=== PATIENT | female | born 1995 | race Caucasian/White ===

== ENCOUNTER 2017-08-22 15:31 | Emergency (ER) | payer MEDICAID, OTHER ==
--- NOTE | 2017-08-22 15:56 | EDPHY ---
H & P Stated Complaint: uti dx 2 days ago--cant swallow antibiotics-feels worse, diarrhea Time Seen by Provider: 08/22/17 15:41 - Personal History LMP (Females 10-55): Over 28 Days Ago - Medical/Surgical History Hx Asthma: No Hx Chronic Respiratory Disease: No Hx Diabetes: No Hx Cardiac Disease: No Hx Renal Disease: No Hx Cirrhosis: No Hx Alcoholism: No Hx HIV/AIDS: No Hx Splenectomy or Spleen Trauma: No Other PMH: "attention problems", wisdom teeth. frequent uti - Social History Smoking Status: Never smoked Constitutional: Initial Vital Signs Temperature (C) 37.2 C 08/22/17 15:37 Heart Rate 120 H 08/22/17 15:37 Respiratory Rate 16 08/22/17 15:37 Blood Pressure 111/75 08/22/17 15:37 O2 Sat (%) 97 08/22/17 15:37 O2 Delivery Mode Room Air Allergies/Adverse Reactions: Penicillins Allergy (Verified 08/22/17 15:34) Home Medications: Medication Instructions Recorded Cefdinir 250 mg PO BID #100 susp.recon 08/22/17 Cefuroxime 08/22/17 Medical Decision Making ED Course/Re-evaluation: CHIEF COMPLAINT: Worsening UTI, diarrhea HISTORY OF PRESENT ILLNESS: The patient is a 22 y/o female with a history of frequent UTI's and developmental delay complaining of worsening urinary symptoms (including frequent and painful urination) and diarrhea. She was seen in an emergency department 2 days ago and diagnosed with a UTI. She was prescribed Cefuroxime, but has only had a several doses as she is unable to swallow the pills. Today she began to have diarrhea and bilateral flank pain. Prior UTI's have been successfully treated with liquid Cefdinir. Denies chest pain, sore throat, headache, bowel complaints, paresthesias or numbness. REVIEW OF SYSTEMS: A 10 point review of systems was performed and is negative with the exception of the elements mentioned in the history of present illness. PHYSICAL EXAM: HR, BP, O2 Sat, RR. Temp noted General Appearance: Alert, well hydrated, and non-toxic appearing. Head: Atraumatic without scalp tenderness or obvious injury Eyes: Pupils equal, round, reactive to light and accommodation, EOMI, no trauma , no injection. Ears: Clear bilaterally, no perforation, normal landmarks Nose: Atraumatic, no rhinorrhea, clear. Throat: Mucus membranes dry. Neck: Supple, nontender, no lymphadenopathy. Respiratory: No retractions, no distress, no wheezes, and no accessory muscle use. Lungs are clear to auscultation bilaterally. Cardiovascular: Regular rate and rhythm, no murmurs, rubs, or gallops. Good capillary refill all extremities. Gastrointestinal: Abdomen is soft, nontender, non-distended, no masses, no rebound, no guarding, no peritoneal signs. Back: Bilateral flank pain. Musculoskeletal: Normal active ROM of all extremities, atraumatic. Neurological: Alert, appropriate, and interactive. Nonfocal neuro. Skin: No rashes, good turgor, no nodules on palpation. Past medical history: Frequent UTI's, developmental delay Past surgical history: Denies Family history: Denies Social history: Mother at bedside, lives in [place], student at [employer] DIFFERENTIAL DIAGNOSIS: The differential diagnosis for the patient's flank pain included but was not limited to musculoskeletal causes, kidney stone, pyelonephritis, shingles, diverticulitis, appendicitis, and aortic aneurysm. MEDICAL DECISION MAKING: The patient is a 22 y/o female with a history of frequent UTI's and developmental delay presenting with worsening urinary complaints and diarrhea. She has been on Cefuroxime but has been unable to take this as prescribed as she is unable to swallow pills. On exam she has dry mucous membranes and bilateral flank pain. Labs ordered; 2L IV NS and 1gm Ceftriaxone administered. 1604: Patient's UA reveals elevated ketones, white cells, and red cells. 1648: Reassessed patient and discussed laboratory findings. I have offered her an admission due to the uncomplicated pyelonephritis and the patient's difficulty with taking antibiotics. The patient and her mother have politely declined this admission. I have prescribed her Omnicef to take at home. Return precautions provided; patient and her mother are comfortable with this plan. - Data Points Laboratory Results: Laboratory Results 08/22/17 16:05 08/22/17 16:05 08/22/17 08/22/17 08/22/17 16:05 16:05 16:05 WBC 5.85 10^3/uL 10^3/uL (3.80-9.50) RBC 4.57 10^6/uL 10^6/uL (4.18-5.33) Hgb 11.7 g/dL L g/dL (12.6-16.3) Hct 37.3 % L % (38.0-47.0) MCV 81.6 fL fL (81.5-99.8) MCH 25.6 pg L pg (27.9-34.1) MCHC 31.4 g/dL L g/dL (32.4-36.7) RDW 14.8 % % (11.5-15.2) Plt Count 241 10^3/uL 10^3/uL (150-400) MPV 9.1 fL fL (8.7-11.7) Neut % (Auto) Not Reported Lymph % (Auto) Not Reported [place] % (Auto) Not Reported Eos % (Auto) Not Reported Baso % (Auto) Not Reported Nucleat RBC Rel Count Not Reported Absolute Neuts (auto) Not Reported Absolute Lymphs (auto) Not Reported Absolute Monos (auto) Not Reported Absolute Eos (auto) Not Reported Absolute Basos (auto) Not Reported Absolute Nucleated RBC Not Reported Immature Gran % Not Reported Seg Neutrophils % 78.0 % % Band Neutrophils % 8.0 % % Lymphocytes % 8.0 % % Monocytes % 4.0 % % Eosinophils % 0 % % Basophils % 1.0 % % Metamyelocytes % 0 % % Myelocytes % 0 % % Promyelocytes % 0 % % Blast Cells % 0 % % Immature Gran # Not Reported Absolute Seg Neuts 4.56 10^/uL 10^/uL (1.70-6.50) Absolute Band Neuts 0.47 10^3/uL 10^3/uL (0.00-0.70) Absolute Lymphocytes 0.47 10^3/uL L 10^3/uL (1.00-3.00) Absolute Monocytes 0.23 10^3/uL L 10^3/uL (0.30-0.80) Absolute Eosinophils 0.00 10^3/uL L 10^3/uL (0.03-0.40) Absolute Basophils 0.06 10^3/uL 10^3/uL (0.02-0.10) Absolute Metamyelocyte 0.00 10^3/mL 10^3/mL (0.00-0.00) Absolute Myelocytes 0.00 10^3/mL 10^3/mL (0.00-0.00) Absolute Promyelocytes 0.00 10^3/uL 10^3/uL (0.00-0.00) Absolute Plasma Cells 0.00 10^3/uL 10^3/uL (0.00-0.00) Absolute Blast Cells 0.00 10^3/uL 10^3/uL (0.00-0.00) Plasma Cells % 0 % % Platelet Estimate ADEQUATE (ADEQ) Microcytic Cells 1+ H Sodium 142 mEq/L mEq/L (135-145) Potassium 3.4 mEq/L mEq/L (3.3-5.0) Chloride 104 mEq/L mEq/L (97-110) Carbon Dioxide 19 mEq/l L mEq/l (22-31) Anion Gap 19 mEq/L H mEq/L (8-16) BUN 14 mg/dL mg/dL (7-23) Creatinine 0.6 mg/dL mg/dL (0.6-1.0) Estimated GFR > 60 Glucose 95 mg/dL mg/dL (70-100) Calcium 8.9 mg/dL mg/dL (8.5-10.4) Beta HCG, Qual NEGATIVE Urine Color Urine Appearance Urine pH Ur Specific [place] Urine Protein Urine Ketones Urine Blood Urine Nitrate Urine Bilirubin Urine Urobilinogen Ur Leukocyte Esterase Urine RBC Urine WBC Ur Epithelial Cells Urine Bacteria Hyaline Casts Urine Mucus Urine Glucose 08/22/17 15:40 WBC RBC Hgb Hct MCV MCH MCHC RDW Plt Count MPV Neut % (Auto) Lymph % (Auto) [place] % (Auto) Eos % (Auto) Baso % (Auto) Nucleat RBC Rel Count Absolute Neuts (auto) Absolute Lymphs (auto) Absolute Monos (auto) Absolute Eos (auto) Absolute Basos (auto) Absolute Nucleated RBC Immature Gran % Seg Neutrophils % Band Neutrophils % Lymphocytes % Monocytes % Eosinophils % Basophils % Metamyelocytes % Myelocytes % Promyelocytes % Blast Cells % Immature Gran # Absolute Seg Neuts Absolute Band Neuts Absolute Lymphocytes Absolute Monocytes Absolute Eosinophils Absolute Basophils Absolute Metamyelocyte Absolute Myelocytes Absolute Promyelocytes Absolute Plasma Cells Absolute Blast Cells Plasma Cells % Platelet Estimate Microcytic Cells Sodium Potassium Chloride Carbon Dioxide Anion Gap BUN Creatinine Estimated GFR Glucose Calcium Beta HCG, Qual Urine Color YELLOW Urine Appearance HAZY Urine pH 5.0 (5.0-7.5) Ur Specific [place] 1.025 (1.002-1.030) Urine Protein 1+ H (NEGATIVE) Urine Ketones 2+ H (NEGATIVE) Urine Blood NEGATIVE (NEGATIVE) Urine Nitrate NEGATIVE (NEGATIVE) Urine Bilirubin NEGATIVE (NEGATIVE) Urine Urobilinogen NEGATIVE EU EU (0.2-1.0) Ur Leukocyte Esterase 1+ H (NEGATIVE) Urine RBC 3-5 /hpf H /hpf (0-3) Urine WBC 5-10 /hpf H /hpf (0-3) Ur Epithelial Cells 2+ /lpf H /lpf (NONE-1+) Urine Bacteria TRACE /hpf H /hpf (NONE SEEN) Hyaline Casts 1-5 /lpf /lpf (0-1) Urine Mucus 3+ /lpf H /lpf (NONE-1+) Urine Glucose NEGATIVE (NEGATIVE) Medications Given: Discontinued Medications Ceftriaxone Sodium/Dextrose (Rocephin 1 Gm (Premix)) 50 mls @ 100 mls/hr IV EDNOW ONE PRN Reason: Protocol Stop: 08/22/17 16:32 Last Admin: 08/22/17 16:09 Dose: 50 mls Sodium Chloride (Ns) 1,000 mls @ 0 mls/hr IV EDNOW ONE; Wide Open PRN Reason: Protocol Stop: 08/22/17 16:04 Last Admin: 08/22/17 16:08 Dose: 1,000 mls Sodium Chloride (Ns) 1,000 mls @ 0 mls/hr IV EDNOW ONE; Wide Open PRN Reason: Protocol Stop: 08/22/17 16:04 Last Admin: 08/22/17 16:32 Dose: 1,000 mls Departure - Departure Disposition: Home, Routine, Self-Care Clinical Impression: Pyelonephritis Urinary tract infection Qualifiers: Urinary tract infection type: site unspecified Hematuria presence: with hematuria Qualified Code(s): N39.0 - Urinary tract infection, site not specified ; R31.9 - Hematuria, unspecified; R31.9 - Hematuria, unspecified Diarrhea Qualifiers: Diarrhea type: unspecified type Qualified Code(s): R19.7 - Diarrhea, unspecified Condition: Good Instructions: Urinary Tract Infection in Women (ED), Acute Diarrhea (ED) Additional Instructions: 1. Take Omnicef as prescribed. 2. Follow-up with your primary doctor within 72 hours. 3. Return to the Emergency Department for fever, worsening pain, flank pain or failure to improve within 72 hours. 4. It is possible that the bacteria causing your infection is resistant to the antibiotic we've placed you on. We have sent a urine for culture, if this comes back with a resistant bacteria, we will call you at the number you provided to us. Referrals: EMMANUELLE MORGAN [Other] - As per Instructions Prescriptions: Cefdinir 250 mg PO BID #100 susp.recon Report Scribed for: Les Oconnell Report Scribed by: Meghan Frank Date of Report: 08/22/17 Time of Report: 15:56
[2017-08-22] MEDS ORDERED: NS 1,000 ML IV ONE ×2 (16:03)
[2017-08-22 16:11] LABS: PLATELET COUNT 241 10^3/uL (150-400)
[2017-08-22 18:01] VITALS: BP 94/56
== END 2017-08-22 18:02 | disposition home or self-care (01) ==
DX: N12 Tubulo-interstitial nephritis, not specified as acute or chronic (principal); N39.0 Urinary tract infection, site not specified; R19.7 Diarrhea, unspecified; B95.2 Enterococcus as the cause of diseases classified elsewhere; E86.9 Volume depletion, unspecified
CPT/HCPCS: 96365; J0696

== ENCOUNTER 2017-08-24 00:02 | Emergency (ER) | payer MEDICAID, OTHER ==
[2017-08-24] MEDS ORDERED: NS 1,000 ML IV ONE (00:24)
[2017-08-24] MEDS ORDERED: ONDANSETRON 4 MG/2 ML VIAL IVP ONE (00:25)
--- NOTE | 2017-08-24 00:25 | EDPHY ---
H & P Stated Complaint: Bilat lower abd pain, blood in stool - D/C'd yesterday. Time Seen by Provider: 08/24/17 00:27 HPI/ROS: HPI CHIEF COMPLAINT: Abdominal pain with nausea. ER visit yesterday. HISTORY OF PRESENT ILLNESS: Patient is a 22-year-old female, history of developmental delay comma frequent UTIs and pyelonephritis, she was seen here yesterday and diagnosed with urinary tract infection previous to that she was seen in outside ER and diagnosed with a UTI. Her she was having trouble taking pills that was switched to liquids cefdinir. She presents back to the emergency room as she has increasing nausea and increasing suprapubic pain. She has not been taking the peridium. She has been taking her antibiotic as prescribed. She denies fever. There has been no vomiting. She has had some diarrhea. She reports there has been some bright pink blood in it. Denies chest pain or shortness of breath. Denies significant abdominal pain. No fever. Mom at bedside. Past Medical History: Developmental delay comma frequent UTIs, pyelonephritis Past Surgical History: No recent surgery Social History: Lives locally mom at bedside. Denies drugs alcohol tobacco. Family History: Noncontributory ROS REVIEW OF SYSTEMS: A comprehensive 10 point review of systems is otherwise negative aside from elements mentioned in the history of present illness. Exam Constitutional appears well nontoxic no acute distress triage nursing summary reviewed, vital signs reviewed, awake/alert. Eyes normal conjunctivae and sclera, EOMI, PERRLA. HENT normal inspection, atraumatic, moist mucus membranes, no epistaxis, neck supple/ no meningismus, no raccoon eyes. Respiratory clear to auscultation bilaterally, normal breath sounds, no respiratory distress, no wheezing. Cardiovascular rate normal, regular rhythm, no murmur, no edema, distal pulses normal. Gastrointestinal mild suprapubic tenderness, no right lower quadrant or left lower quadrant pain, no rebound, no guarding, normal bowel sounds, no distension , no pulsatile mass. Genitourinary no CVA tenderness. Musculoskeletal no midline vertebral tenderness, full range of motion, no calf swelling, no tenderness of extremities, no meningismus, good pulses, neurovascularly intact. Skin pink, warm, & dry, no rash, skin atraumatic. Neurologic awake, alert and oriented x 3, AAOx3, moves all 4 extremities equally, motor intact, sensory intact, CN II-XII intact, normal cerebellar, normal vision, normal speech. Psychiatric normal mood/affect. Heme/Lymph/Immune no lymphadenopathy. Differential Diagnosis: Includes but is not limited to in a particular order dehydration electrolyte disturbance, worsening UTI, pyelonephritis, sepsis, colitis, diverticulitis, acute diarrheal illness, diarrheal infection Medical Decision Making: Plan for this patient IV establishment with IV fluid bolus, check basic blood work, urinalysis, Zofran for nausea, stool studies, GI occult blood. Re-evaluate. Re-evaluation: CT scan abdomen pelvis with IV contrast this shows a ruptured left ovarian cyst with mild to moderate amount of pelvic free fluid. No evidence of kidney stone. No evidence of pyelonephritis on CT. This is the most likely cause of her lower abdominal pain. Ruptured ovarian cyst. 0334: I did go re-evaluate she is resting comfortably. She is eager for discharge. Mom is requesting discharge. She denies any fever, she is not vomiting. I reviewed her blood work. H&H are stable. Urinalysis is a dirty catch but does not appear further infected. She does not have an increasing white count. CT scan shows mild to moderate amount of free fluid in the pelvis from a left ovarian ruptured cyst. I went over the results with mom and patient at bedside that she has a ruptured left ovarian cyst. They would like to go home. Additionally I recommend return precautions return emergency room if there is worsening abdominal pain fever or vomiting. She will most likely have some pain from the blood in her pelvis. Discussed this with her and her mom. They do understand return emergency room if there is worsening abdominal pain fever vomiting. They are comfortable this plan. Recommend continuing antibiotics previous UTI. Source: Patient, Family - Personal History LMP (Females 10-55): 15-21 Days Ago Current Tetanus/Diphtheria Vaccine: Yes Current Tetanus Diphtheria and Acellular Pertussis (TDAP): Yes - Medical/Surgical History Hx Asthma: No Hx Chronic Respiratory Disease: No Hx Diabetes: No Hx Cardiac Disease: No Hx Renal Disease: No Hx Cirrhosis: No Hx Alcoholism: No Hx HIV/AIDS: No Hx Splenectomy or Spleen Trauma: No Other PMH: "attention problems", wisdom teeth. frequent uti - Social History Smoking Status: Never smoked Constitutional: Initial Vital Signs Temperature (C) 36.9 C 08/24/17 00:09 Heart Rate 98 08/24/17 00:09 Respiratory Rate 16 08/24/17 00:09 Blood Pressure 90/63 L 08/24/17 00:09 O2 Sat (%) 97 08/24/17 00:09 O2 Delivery Mode Room Air Allergies/Adverse Reactions: Penicillins Allergy (Verified 08/22/17 15:34) Home Medications: Medication Instructions Recorded NK [No Known Home Meds] 08/24/17 Medical Decision Making - Data Points Laboratory Results: Laboratory Results 08/24/17 00:30 08/24/17 00:30 08/24/17 08/24/17 08/24/17 01:00 00:30 00:30 WBC RBC Hgb Hct MCV MCH MCHC RDW Plt Count MPV Neut % (Auto) Lymph % (Auto) [place] % (Auto) Eos % (Auto) Baso % (Auto) Nucleat RBC Rel Count Absolute Neuts (auto) Absolute Lymphs (auto) Absolute Monos (auto) Absolute Eos (auto) Absolute Basos (auto) Absolute Nucleated RBC Immature Gran % Immature Gran # Sodium Potassium Chloride Carbon Dioxide Anion Gap BUN Creatinine Estimated GFR Glucose Calcium Total Bilirubin Conjugated Bilirubin Unconjugated Bilirubin AST ALT Alkaline Phosphatase Total Protein Albumin Lipase Beta HCG, Qual NEGATIVE Urine Color Urine Appearance Urine pH Ur Specific [place] Urine Protein Urine Ketones Urine Blood Urine Nitrate Urine Bilirubin Urine Urobilinogen Ur Leukocyte Esterase Urine RBC Urine WBC Ur Epithelial Cells Calcium Oxalate Crystal Urine Mucus Urine Glucose Urine Test NEGATIVE Stool Occult Bld Scrn NEGATIVE (NEGATIVE) 08/24/17 08/24/17 08/24/17 00:30 00:30 00:30 WBC 3.50 10^3/uL L 10^3/uL (3.80-9.50) RBC 4.72 10^6/uL 10^6/uL (4.18-5.33) Hgb 12.2 g/dL L g/dL (12.6-16.3) Hct 38.1 % % (38.0-47.0) MCV 80.7 fL L fL (81.5-99.8) MCH 25.8 pg L pg (27.9-34.1) MCHC 32.0 g/dL L g/dL (32.4-36.7) RDW 14.7 % % (11.5-15.2) Plt Count 231 10^3/uL 10^3/uL (150-400) MPV 9.9 fL fL (8.7-11.7) Neut % (Auto) 53.4 % % (39.3-74.2) Lymph % (Auto) 26.9 % % (15.0-45.0) [place] % (Auto) 14.9 % H % (4.5-13.0) Eos % (Auto) 3.4 % % (0.6-7.6) Baso % (Auto) 1.1 % % (0.3-1.7) Nucleat RBC Rel Count 0.0 % % (0.0-0.2) Absolute Neuts (auto) 1.87 10^3/uL 10^3/uL (1.70-6.50) Absolute Lymphs (auto) 0.94 10^3/uL L 10^3/uL (1.00-3.00) Absolute Monos (auto) 0.52 10^3/uL 10^3/uL (0.30-0.80) Absolute Eos (auto) 0.12 10^3/uL 10^3/uL (0.03-0.40) Absolute Basos (auto) 0.04 10^3/uL 10^3/uL (0.02-0.10) Absolute Nucleated RBC 0.00 10^3/uL 10^3/uL (0-0.01) Immature Gran % 0.3 % % (0.0-1.1) Immature Gran # 0.01 10^3/uL 10^3/uL (0.00-0.10) Sodium 146 mEq/L H mEq/L (135-145) Potassium 3.7 mEq/L mEq/L (3.3-5.0) Chloride 109 mEq/L mEq/L (97-110) Carbon Dioxide 25 mEq/l mEq/l (22-31) Anion Gap 12 mEq/L mEq/L (8-16) BUN 6 mg/dL L mg/dL (7-23) Creatinine 0.5 mg/dL L mg/dL (0.6-1.0) Estimated GFR > 60 Glucose 109 mg/dL H mg/dL (70-100) Calcium 8.6 mg/dL mg/dL (8.5-10.4) Total Bilirubin 0.9 mg/dL mg/dL (0.1-1.4) Conjugated Bilirubin 0.3 mg/dL mg/dL (0.0-0.5) Unconjugated Bilirubin 0.6 mg/dL mg/dL (0.0-1.1) AST 34 IU/L IU/L (14-46) ALT 23 IU/L IU/L (9-52) Alkaline Phosphatase 55 IU/L IU/L (38-126) Total Protein 6.5 g/dL g/dL (6.3-8.2) Albumin 3.7 g/dL g/dL (3.5-5.0) Lipase 67 IU/L IU/L (23-300) Beta HCG, Qual Urine Color YELLOW Urine Appearance MODERATELY TURBID Urine pH 5.0 (5.0-7.5) Ur Specific [place] 1.027 (1.002-1.030) Urine Protein 1+ H (NEGATIVE) Urine Ketones TRACE H (NEGATIVE) Urine Blood NEGATIVE (NEGATIVE) Urine Nitrate NEGATIVE (NEGATIVE) Urine Bilirubin NEGATIVE (NEGATIVE) Urine Urobilinogen NEGATIVE EU EU (0.2-1.0) Ur Leukocyte Esterase 2+ H (NEGATIVE) Urine RBC 5-10 /hpf H /hpf (0-3) Urine WBC 5-10 /hpf H /hpf (0-3) Ur Epithelial Cells 2+ /lpf H /lpf (NONE-1+) Calcium Oxalate Crystal PRESENT /hpf /hpf (NONE-1+) Urine Mucus 4+ /lpf H /lpf (NONE-1+) Urine Glucose 1+ H (NEGATIVE) Urine Test Stool Occult Bld Scrn Medications Given: Discontinued Medications Diphenhydramine HCl (Benadryl Oral Liquid) 12.5 mg PO EDNOW ONE Stop: 08/24/17 01:41 Last Admin: 08/24/17 01:44 Dose: 12.5 mg Sodium Chloride (Ns) 1,000 mls @ 0 mls/hr IV EDNOW ONE; Wide Open PRN Reason: Protocol Stop: 08/24/17 00:25 Last Admin: 08/24/17 00:38 Dose: 1,000 mls Ondansetron HCl (Zofran) 4 mg IVP EDNOW ONE Stop: 08/24/17 00:26 Last Admin: 08/24/17 00:39 Dose: 4 mg Departure - Departure Disposition: Home, Routine, Self-Care Clinical Impression: Ruptured ovarian cyst Abdominal pain Qualifiers: Abdominal location: unspecified location Qualified Code(s): R10.9 - Unspecified abdominal pain Condition: Good Instructions: Ovarian Cyst (ED), Ruptured Ovarian Cyst (ED), Acute Abdominal Pain (ED) Additional Instructions: 1. Return emergency room if there is worsening abdominal pain fever vomiting. 2. Return if you have any further questions or concerns 3. Continue your antibiotic for urinary tract infection 4. Recommend taking ibuprofen or Motrin for pain control the ruptured ovarian cyst 5. Return if worsening pain. Referrals: NONE *PRIMARY CARE P,. [Primary Care Provider] - As per Instructions Alicia Vergara DO [Doctor of Osteopathy] - As per Instructions
[2017-08-24 01:08] LABS: PLATELET COUNT 231 10^3/uL (150-400)
[2017-08-24] MEDS ORDERED: diphenhydrAMINE 12.5 MG/5 ML UDCUP PO ONE ×2 (01:40→03:36)
[2017-08-24] MEDS ORDERED: diphenhydrAMINE 12.5 MG/5 ML UDCUP ONE (01:43)
[2017-08-24] MEDS ORDERED: IOPAMIDOL (ISOVUE-300) 100 ML BTL ONE (02:06)
[2017-08-24] MEDS ORDERED: KETOROLAC 15 MG/1 ML SDV IVP ONE (03:36)
[2017-08-24 03:50] VITALS: BP 103/70
== END 2017-08-24 04:03 | disposition home or self-care (01) ==
DX: N83.202 Unspecified ovarian cyst, left side (principal); E86.9 Volume depletion, unspecified
CPT/HCPCS: 96374; J1885; J2405; Q9967

== ENCOUNTER 2018-02-04 08:20 | Emergency (ER) | payer OTHER, MEDICAID ==
--- NOTE | 2018-02-04 09:14 | EDPHY ---
H & P Time Seen by Provider: 02/04/18 08:56 HPI/ROS: CHIEF COMPLAINT: Right facial swelling HISTORY OF PRESENT ILLNESS: Patient is a 22-year-old female who presents emergency department ongoing right-sided facial swelling. The patient was seen at urgent care on Thursday for UTI symptoms as well as mild facial swelling. She was prescribed cephalexin. The doctor told her that this would take care both her urinary tract infection and her facial swelling. Her facial swelling got worse on Thursday. She was again seen in urgent care. She was given an injection of an antibiotic. They do not recall the name. She was told to double her dose of cephalexin. The facial swelling and redness has improved but is still present. They were told to follow up in the emergency department if her symptoms persisted today. Patient has no fevers or chills. No visual change. Her facial swelling is slightly worse in the morning when she wakes up. Per her mother, it has improved today. Patient denies discomfort. Per the mother and patient, she has an allergy to penicillin and difficulty swallowing pills. REVIEW OF SYSTEMS: 10 systems were reveiwed and are negative with the exception of the elements mentioned in the history of present illness. Past Medical/Surgical History: Includes"attention problems", recurrent UTI Smoking Status: Never smoked Physical Exam: Vitals noted. Afebrile. 82/57, heart rate 94. GENERAL: Well-appearing, in no acute distress, alert. HEENT: Patient has mild swelling under her right eye. There is no significant erythema or warmth. There is no hives. Eyes normal to inspection. No injection. No facial tenderness. Normal pharynx. NECK: Normal, supple. No lymphadenopathy RESPIRATORY: Clear to auscultation bilaterally, no rales, rhonchi or wheezing. CVS: Regular rate and rhythm, no rubs, murmurs, or gallops. ABDOMEN: Soft, nontender, nondistended, no organomegaly. BACK: Normal to inspection, no CVA tenderness. SKIN: Normal color, no rash, warm, dry. No pallor. EXTREMITIES: No pedal edema, no joint swelling. Patient is wearing a Velcro splint on her right wrist NEURO/PSYCH: Alert and oriented, normal mood and affect, normal motor sensory exam. No obvious cranial nerve deficit. Constitutional: Initial Vital Signs Temperature (C) 36.5 C 02/04/18 08:25 Heart Rate 94 02/04/18 08:25 Respiratory Rate 18 02/04/18 08:25 Blood Pressure 82/57 L 02/04/18 08:25 O2 Sat (%) 97 02/04/18 08:25 O2 Delivery Mode Room Air Allergies/Adverse Reactions: Penicillins Allergy (Verified 02/04/18 08:24) Home Medications: Medication Instructions Recorded Bcp 02/04/18 Keflex 02/04/18 Sulfamethox/Tmp 800/160 mg 1 tab PO BID #14 tab 02/04/18 [Bactrim Ds] Medical Decision Making ED Course/Re-evaluation: In the emergency department I discussed possible etiologies with the patient and mother. Per their report, the redness has improved. Patient's face has improved since waking this morning. The patient does not appear septic or toxic. She appears well on exam. I discussed treatment options. The patient will be prescribed Bactrim. I contacted the pharmacist to see if this pill could be broken up and she confirmed that it could. I related this to the patient and her mother. She will continue to take the cephalexin. Of note, the patient's UTI symptoms have improved. However, mother was concerned that the infection was not fully treated by the cephalexin. I discussion with her and answered all her questions. A urine estrlelita and urine culture were sent for follow-up reasons. The patient is being started on Bactrim which will additionally cover urinary tract infection. Differential Diagnosis: My differential includes but is not limited to periorbital cellulitis, orbital cellulitis, sinus infection, bacteremia, sepsis, hives, allergic reaction, lupus Departure - Departure Disposition: Home, Routine, Self-Care Clinical Impression: Cellulitis Qualifiers: Site of cellulitis: face Qualified Code(s): L03.211 - Cellulitis of face Condition: Good Instructions: Cellulitis (ED) Additional Instructions: Return with increasing redness, swelling, fever or any other concerns. Take your entire course of cephalexin and Bactrim. Referrals: EMMANUELLE MORGAN PA-C [Other] - 2-3 days, call for appt. Prescriptions: Sulfamethox/Tmp 800/160 mg [Bactrim Ds] 1 tab PO BID #14 tab
[2018-02-04 09:33] VITALS: BP 100/65
== END 2018-02-04 09:33 | disposition home or self-care (01) ==
DX: L03.211 Cellulitis of face (principal)

== ENCOUNTER 2018-08-18 10:47 | Emergency (ER) | payer OTHER, MEDICAID ==
[2018-08-18] MEDS ORDERED: NS 1,000 ML IV ONE (11:10)
[2018-08-18] MEDS ORDERED: ONDANSETRON 4 MG/2 ML VIAL IVP ONE (11:10)
[2018-08-18 11:16] LABS: PLATELET COUNT 287 10^3/uL (150-400)
--- NOTE | 2018-08-18 11:18 | EDPHY ---
General Time Seen by Provider: 08/18/18 10:55 Narrative: CLINICAL IMPRESSION: Microscopic hematuria, trace bacteriuria, nausea and vomiting ASSESSMENT/PLAN: 23-year-old female with reported past medical history of chronic UTIs presents to the emergency department with several hours of generalized abdominal discomfort, nausea and vomiting. Patient reports a history of frequent UTIs, as well as kidney stones but admits that she has had upwards of 4-5 CT scans in her life, the most recent being 1 week ago. At that time she was evaluated in emergency department in [place] where she lives and states she had comprehensive cardiac workup including CT angiogram for left-sided rib pain. Urine today does show hematuria with trace bacteriuria but no pyuria. Urine culture ordered and patient prefers to hold off on antibiotic therapy pending urine culture results. Given frequent and recent exposure to CT radiation exposure, I pursued retroperitoneal ultrasound which was read by radiologist showing no evidence of hydronephrosis or obvious nephrolithiasis or ureterolithiasis. Patient's nausea improved with a single dose of IV antiemetic and she was able to tolerate water without difficulty. She did not vomit in the ED. Abdomen is soft without focal peritoneal findings. Clinically I do not suspect an acute surgical process. I have encouraged her to follow up with primary urology in [place]. She will be contacted with positive urine culture results in 2-3 days. Zofran prescribed, warning signs return to ED sooner discussed discharge. DIFFERENTIAL DX: Abdominal pain includes but not limited to urinary tract infection, pyelonephritis, infection, ectopic , salpingitis, TOA, ovarian torsion, ovarian cyst, endometriosis, uterine fibroids, acute appendicitis, acute diverticulitis, small-bowel obstruction, constipation, viral gastroenteritis ED PROCEDURES: See lab and/or imaging results below ED COURSE: 11:15 a.m.: Urine test negative. Microscopic hematuria and trace bacteriuria noted. Urine culture ordered. Given patient's extensive exposure to CT radiation with reported 4-5 CT scans in her life, most recent being 1 week ago, will pursue retroperitoneal ultrasound to evaluate for hydronephrosis. 12:30 p.m.: Ultrasound results discussed with Dr. Randolph. No hydronephrosis or obvious visible stone on ultrasound. Fatty liver noted. Remainder of ultrasound unremarkable. CHIEF COMPLAINT: Nausea vomiting diarrhea abdominal pain HPI: 23-year-old female with a history of chronic UTIs presents to the emergency department with complaints of generalized abdominal pain, nausea, vomiting and diarrhea beginning at 5:30 a.m. This morning. Patient denies any new foods, travel, camping, or recent antibiotics. She has been struggling with a left posterior rib pain for over a month, reportedly was seen at an emergency department in [place] where she lives a week ago and reports having "an extensive workup at that time including EKG, CT scan, chest x-ray and labs. She does report a history of kidney stones and states this pain feels like that. She reports never having painful urination or frequency with her urinary tract infections. She thinks she has had upwards of 4-5 CT scans in her life. She reports no associated fever or chills today. No blood in her stools and no hematemesis. She does not drink alcohol. She is on control but has not had a menstrual cycle in some time and is unsure of . No abnormal discharge. No complaints of chest pain or shortness of breath. She used to have a prescription for Zofran for chronic nausea but ran out. PAST MEDICAL HISTORY: Frequent UTIs See nurse/triage notes for additional history if applicable Pertinent Past Surgical History: None reported Family History: Noncontributory Social History: Lives in [place] REVIEW OF SYSTEMS: All other systems negative Constitutional: No fever, no chills, positive for appetite change. Cardiovascular: No chest pain, no palpitations. Respiratory: No cough, no shortness of breath. Gastrointestinal: Positive for abdominal pain, nausea, vomiting, diarrhea. Genitourinary: No hematuria, dysuria, positive for left-sided flank pain, pelvic pain Musculoskeletal: Positive for left-sided rib and back pain, joint swelling, joint pain, myalgias. Skin: No rashes, color change. PHYSICAL EXAM: General Appearance: Alert, oriented, appropriate, cooperative, NAD, well hydrated, non-toxic appearing, VSS, no hypoxia. Acting younger than stated age , holding a stuffed animal. Respiratory: There are no retractions, lungs are clear to auscultation. Cardiac: Regular rate and rhythm, no murmurs or gallops. Gastrointestinal: Abdomen is soft, nontender, bowel sounds normal, no masses/ hernia, no rigidity, guarding or focal peritoneal findings. Mild pain elicited with palpation of left posterior lower ribs and flank Neurological: [ Alert and oriented x 3 Skin: Warm, dry, no rashes, no nodules on palpation. MEDICAL DECISION MAKING: Patient was seen independently. Secondary supervising physician at time of evaluation was Dr. Weinstein. Diagnosis: Microscopic hematuria, bacteriuria, nausea and vomiting . New, requires workup Summary: See Assessment and Plan for summary of ED visit Clinical lab tests: ordered / reviewed. Independent visualization of images, tracing, or specimens: Yes. Decision to obtain medical records or history from someone other than the patient: Patient's mother Review / Summarize previous medical records: None available Discussed patient with another provider: Radiology Patient Progress: Stable for discharge. - Diagnostics Imaging Results: Imaging Impressions Abdomen/Pelvis Ultrasound 08/18/18 11:18 Impression: 1. No acute findings. 2. Echogenic liver suggesting hepatic steatosis. Findings discussed with Navi Gomes 08/18/2018 at 12:33. - History Smoking Status: Never smoked - Objective Vital Signs: Initial Vital Signs Temperature (C) 36.9 C 08/18/18 10:50 Heart Rate 84 08/18/18 10:50 Respiratory Rate 16 08/18/18 10:50 Blood Pressure 100/72 08/18/18 10:50 O2 Sat (%) 97 08/18/18 10:50 O2 Delivery Mode Room Air Allergies/Adverse Reactions: Penicillins Allergy (Verified 08/18/18 10:50) Home Medications: Medication Instructions Recorded Bcp 02/04/18 Ondansetron Odt [Zofran Odt] 4 mg PO Q4PRN PRN #7 tab 05/15/19 Laboratory Results: Laboratory Results 08/18/18 11:00 08/18/18 11:00 08/18/18 08/18/18 08/18/18 11:00 11:00 10:53 WBC 6.69 10^3/uL 10^3/uL (3.80-9.50) RBC 4.53 10^6/uL 10^6/uL (4.18-5.33) Hgb 12.9 g/dL g/dL (12.6-16.3) Hct 40.3 % % (38.0-47.0) MCV 89.0 fL fL (81.5-99.8) MCH 28.5 pg pg (27.9-34.1) MCHC 32.0 g/dL L g/dL (32.4-36.7) RDW 13.1 % % (11.5-15.2) Plt Count 287 10^3/uL 10^3/uL (150-400) MPV 9.3 fL fL (8.7-11.7) Neut % (Auto) 83.3 % H % (39.3-74.2) Lymph % (Auto) 10.6 % L % (15.0-45.0) [place] % (Auto) 3.6 % L % (4.5-13.0) Eos % (Auto) 1.5 % % (0.6-7.6) Baso % (Auto) 0.7 % % (0.3-1.7) Nucleat RBC Rel Count 0.0 % % (0.0-0.2) Absolute Neuts (auto) 5.57 10^3/uL 10^3/uL (1.70-6.50) Absolute Lymphs (auto) 0.71 10^3/uL L 10^3/uL (1.00-3.00) Absolute Monos (auto) 0.24 10^3/uL L 10^3/uL (0.30-0.80) Absolute Eos (auto) 0.10 10^3/uL 10^3/uL (0.03-0.40) Absolute Basos (auto) 0.05 10^3/uL 10^3/uL (0.02-0.10) Absolute Nucleated RBC 0.00 10^3/uL 10^3/uL (0-0.01) Immature Gran % 0.3 % % (0.0-1.1) Immature Gran # 0.02 10^3/uL 10^3/uL (0.00-0.10) Sodium 138 mEq/L mEq/L (135-145) Potassium 4.2 mEq/L mEq/L (3.5-5.2) Chloride 108 mEq/L mEq/L (97-110) Carbon Dioxide 21 mEq/l L mEq/l (22-31) Anion Gap 9 mEq/L mEq/L (6-14) BUN 10 mg/dL mg/dL (7-23) Creatinine 0.5 mg/dL L mg/dL (0.6-1.0) Estimated GFR > 60 Glucose 86 mg/dL mg/dL (70-100) Calcium 9.3 mg/dL mg/dL (8.5-10.4) Urine Color YELLOW Urine Appearance HAZY Urine pH 6.0 (5.0-7.5) Ur Specific [place] 1.019 (1.002-1.030) Urine Protein NEGATIVE (NEGATIVE) Urine Ketones TRACE H (NEGATIVE) Urine Blood 1+ H (NEGATIVE) Urine Nitrate NEGATIVE (NEGATIVE) Urine Bilirubin NEGATIVE (NEGATIVE) Urine Urobilinogen NEGATIVE EU EU (0.2-1.0) Ur Leukocyte Esterase NEGATIVE (NEGATIVE) Urine RBC 3-5 /hpf H /hpf (0-3) Urine WBC 1-3 /hpf /hpf (0-3) Ur Epithelial Cells TRACE /lpf /lpf (NONE-1+) Urine Bacteria TRACE /hpf H /hpf (NONE SEEN) Urine Mucus 4+ /lpf H /lpf (NONE-1+) Urine Glucose NEGATIVE (NEGATIVE) Medications Given: Discontinued Medications Sodium Chloride (Ns) 1,000 mls @ 0 mls/hr IV EDNOW ONE; Wide Open PRN Reason: Protocol Stop: 08/18/18 11:11 Last Admin: 08/18/18 11:20 Dose: 1,000 mls Ondansetron HCl (Zofran) 4 mg IVP EDNOW ONE Stop: 08/18/18 11:11 Last Admin: 08/18/18 11:20 Dose: 4 mg Point of Care Test Results: Urine HCG Results Negative Departure - Departure Disposition: Home, Routine, Self-Care Clinical Impression: Microscopic hematuria Nausea and vomiting Qualifiers: Vomiting type: unspecified Vomiting Intractability: non-intractable Qualified Code(s): R11.2 - Nausea with vomiting, unspecified Condition: Good Instructions: Acute Nausea and Vomiting (ED), Hematuria (ED) Additional Instructions: DISCHARGE INSTRUCTIONS FROM YOUR DOCTOR Thank you for visiting our emergency department today. You were treated by a physician publisher assistant today and your case was reviewed with our ED Attending physician. Please keep in mind that discharge from the emergency department does not mean that there is nothing wrong - it simply means that we have not identified an emergency condition that requires further evaluation or treatment in the hospital. You should always plan to follow up with primary care for re- evaluation of your condition in the next 2-3 days. If you have been referred to a specialist, please call as soon as possible (today or tomorrow) to schedule your follow up appointment at the appropriate time. DIAGNOSTIC WORKUP IN THE EMERGENCY DEPARTMENT TODAY INCLUDED URINE STUDIES, LABORATORY EVALUATION, AND RENAL ULTRASOUND. YOU DO HAVE BLOOD IN YOUR URINE WITH A TRACE AMOUNT OF BACTERIA. A URINE CULTURE WAS ORDERED AND YOU HAVE REQUESTED HOLDING OFF ON ANTIBIOTICS UNTIL CULTURE RESULTS ARE AVAILABLE IN 2-3 DAYS. LABS ARE OTHERWISE REASSURING, NO EVIDENCE OF RENAL INSUFFICIENCY OR ELECTROLYTE IMBALANCE. NO SIGNIFICANT ELEVATION IN YOUR INFECTION FIGHTING COUNT. ULTRASOUND WAS READ BY THE RADIOLOGIST SHOWING NO EVIDENCE OF SWELLING AROUND THE KIDNEY OR OBVIOUS KIDNEY STONE. YOU DO HAVE A FATTY LIVER AND YOU MAY WANT TO CONSIDER ADJUSTING HER DIET. WE STRONGLY RECOMMEND FOLLOWING UP WITH YOUR UROLOGIST FOR FOLLOW-UP. PLEASE CALL FOR AN APPOINTMENT. RETURN TO THE EMERGENCY DEPARTMENT FOR WORSENING ABDOMINAL PAINFUL URINATION, WORSENING FLANK PAIN, FEVER, CHILLS, WORSENING ABDOMINAL PAIN, OR ANY OTHER CONCERN. People present with illnesses and injuries in different ways, and it is always possible that we have missed something. You may always return for re-evaluation if symptoms worsen or if they are not improving or if you develop new/different symptoms. Again, thank you for choosing our emergency department. We hope that you feel better. Referrals: NONE *PRIMARY CARE P,. [Primary Care Provider] - As per Instructions [facility]Clinic] - 1-2 days without fail Prescriptions: Ondansetron Odt [Zofran Odt] 4 mg PO Q4PRN PRN #7 tab PRN Reason: Nausea/Vomiting, Can'T Take Po
[2018-08-18 13:00] VITALS: BP 108/69
== END 2018-08-18 13:00 | disposition home or self-care (01) ==
DX: R31.29 Other microscopic hematuria (principal); R11.2 Nausea with vomiting, unspecified; E86.9 Volume depletion, unspecified; Z87.440 Personal history of urinary (tract) infections
CPT/HCPCS: 76770; 96361; 96374; 99284; J2405; 81025-ER